=== PATIENT | male | born 1955 | race Caucasian/White ===

== ENCOUNTER 2023-12-14 13:29 | Emergency (ER) | payer SELFPAY ==
[~2023-12-14] VITALS: Ht 167.6 cm; Wt 88.6 kg
[2023-12-14 14:09] LABS: BASO % 0.3 % (0.0-1.0); EOS % 0.5 % (0.0-3.0); HEMATOCRIT 40.3 % (42.0-52.0); HEMOGLOBIN 13.5 g/dl (13.5-17.5); LYMPH # 2.4 10^3/uL (1.5-5.0); LYMPH % 29.7 % (24.0-44.0); MEAN CORPUSCULAR HEMOGLOBIN 30.6 pg (27.0-33.0); MEAN CORPUSCULAR HGB CONC 33.5 g/dl (32.0-36.5); MEAN CORPUSCULAR VOLUME 91.4 fl (80.0-96.0); MONO # 0.5 10^3/uL (0.0-0.8); MONO % 6.1 % (2.0-8.0); NEUTROPHILS % 63.1 % (36.0-66.0); PLATELET COUNT, AUTOMATED 211 10^3/uL (150-450); RED BLOOD COUNT 4.41 10^6/uL (4.30-6.10); WHITE BLOOD COUNT 7.9 10^3/uL (4.0-10.0)
[2023-12-14] MEDS: ASPIRIN 81MG CHEW TABLET PO ONE (14:38)
[2023-12-14 14:47] LABS: CK-MB VALUE MASS 1.3 NG/ML (<3.6)
[2023-12-14 14:49] LABS: ALBUMIN 3.5 G/DL (3.2-5.2); ALKALINE PHOSPHATASE 70 U/L (46-116); ALT/SGPT 33 U/L (7.0-40); AST/SGOT 26 U/L (<34); BILIRUBIN,DIRECT < 0.1 MG/DL (<0.4); BILIRUBIN,TOTAL 0.3 MG/DL (0.3-1.2); BLOOD UREA NITROGEN 15 MG/DL (9-23); CALCIUM LEVEL 9.3 MG/DL (8.3-10.6); CARBON DIOXIDE LEVEL 25 MMOL/L (20-31); CHLORIDE LEVEL 109 MMOL/L (98-107); CREATININE FOR GFR 0.79 MG/DL (0.70-1.30); GLOMERULAR FILTRATION RATE > 60.0 (>42); GLUCOSE, FASTING 130 MG/DL (74-106); POTASSIUM SERUM 4.5 MMOL/L (3.5-5.1); SODIUM LEVEL 141 MMOL/L (136-145); TOTAL PROTEIN 6.6 G/DL (5.7-8.2)
[2023-12-14 14:50] LABS: CPK CREATINE PHOSPHOKINASE 105 U/L (46-171); MB/CK RELATIVE INDEX 1.23 (< OR =4)
[2023-12-14] MEDS: CLOPIDOGREL 300 MG TAB (PLAVIX) PO ONE (15:31)
[2023-12-14] MEDS: HEPARIN SOD (PORCINE) 5000UNITS/ML 1ML VIAL/SYRINGE IV ONE (15:47)
[2023-12-14] MEDS: HEPARIN DRIP 25,000 UNITS in IV 1 EA IV SCH (15:47)
[2023-12-14 15:52] LABS: CK-MB VALUE MASS 1.1 NG/ML (<3.6)
[2023-12-14 15:57] LABS: MB/CK RELATIVE INDEX 1.2 (< OR =4)
[2023-12-14 17:30] VITALS: BP 134/75; TEMP 97.4; O2SAT 95
== END 2023-12-14 17:44 | disposition short-term general hospital (02) ==
LOC: M ED 13:29
DX: I21.4 Non-ST elevation (NSTEMI) myocardial infarction (principal); Z90.89 Acquired absence of other organs